=== PATIENT | male | born 1955 | race Caucasian/White ===

== ENCOUNTER 2016-08-30 11:44 | Emergency (ER) | payer BC ==
[~2016-08-30 11:44] MED LIST: ABREVA; ABREVA TOP; ACET500CAP PO; ALLERTEC PO; ASAB PO; COSAMIN DS1 TAB PO; CRANBERRY1 TAB PO; CRANBERRY300 MG PO; FLAG500TAB PO; FLAXSEED OIL1000 MG PO; GINKGO BILO2 PO; GINSANA PO; GLUCCHONDR PO; LEVAQUIN750 MG PO; MEGARED KRILL OIL PO; PRILO PO; TYLENOL ARTH650 MG PO; VITAMIN B-121000 MC1 SL; VITAMIN B-122500 MCG PO; VITE1000 PO; [UNRECOGNIZED DRUG - OTHER]; [UNRECOGNIZED DRUG - OTHER]; [UNRECOGNIZED DRUG - OTHER] PO
== END 2016-08-30 11:48 | disposition home or self-care (01) ==
LOC: ER 11:44
DX: H60.502 Unspecified acute noninfective otitis externa, left ear (principal); Z87.442 Personal history of urinary calculi; Z79.899 Other long term (current) drug therapy; Z79.82 Long term (current) use of aspirin
CPT/HCPCS: 99282